=== PATIENT | male | born 1990 | race African-American/Black ===

== ENCOUNTER 2018-01-17 13:43 | Emergency (ER) | payer SELFPAY ==
[~2018-01-17] VITALS: Ht 172.7 cm; Wt 84.0 kg
[2018-01-17] MEDS ORDERED: HYDROCODONE/ACETAMINOPHEN 5/325MG TABLET PO ONE (18:00)
[2018-01-17 19:36] VITALS: BP 123/63
== END 2018-01-17 19:39 | disposition home or self-care (01) ==
LOC: ER 13:43
DX: K40.90 Unilateral inguinal hernia, without obstruction or gangrene, not specified as recurrent (principal)
CPT/HCPCS: 74176; 99284